=== PATIENT | male | born 1995 | race Two or more races ===

== ENCOUNTER 2018-03-06 09:55 | Emergency (ER) | payer OTHER ==
[2018-03-06 10:04] VITALS: BP 129/89
== END 2018-03-06 11:00 | disposition left against medical advice (07) ==
DX: Z53.21 Procedure and treatment not carried out due to patient leaving prior to being seen by health care provider (principal)

== ENCOUNTER 2018-08-28 09:02 | Emergency (ER) | payer OTHER ==
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
[2018-08-28 09:37] LABS: PLATELET COUNT 205 10^3/uL (150-400)
[2018-08-28 14:13] VITALS: BP 110/62
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
--- NOTE | 2018-08-28 15:15 | ASMTTCLDSP ---
[facility] Discharge Disposition Disposition: Answers: Discharge If Answers: Yes DISCHARGED: Patient/family given suicide hotline info & SAMHSA brochure? Disposition Notes: Notes: Pt stated commitment or ability to keep self safe, denied thoughts of self harm or harm to others. Pt was given local hotline information and SAMHSA brochure After an Attempt. Discharge Concerns/Recommendations: Notes: In consultation with [facility] ED physician, Krysten Luevano MD, Dr. Luevano concurred that pt does not appear to meet 27-65 criteria requiring psychiatric hospitalization as pt does not appear to be an imminent risk of harm to self/others/gravely disabled due to a mental illness condition. Dr. Luevano provided verbal order read back vacating M1 hold at 1335 hrs. Was patient given the Answers: Not applicable Inpatient Behavioral Health Prohibited Belongings List while in the ED? Psychiatrist vacating M1 Krysten Luevano MD Hold: Date and time M1 hold 08/28/2018 01:55 PM vacated (time format is hh:mm): Type of Hold: Answers: M1/72-hour Hold Hold initiated by: Answers: Police Date Signed: 08/28/2018 03:14 PM Electronically Signed By:Gordon Camargo
== END 2018-08-28 14:13 | disposition home or self-care (01) ==
LOC: EDUNIT#
PROC: GZ11ZZZ Psychological Tests, Personality and Behavioral (ICD-10-PCS; principal; 2018-08-28)
DX: T42.4X1A Poisoning by benzodiazepines, accidental (unintentional), initial encounter (principal); F43.9 Reaction to severe stress, unspecified
CPT/HCPCS: 80305; G0480

== ENCOUNTER 2019-04-25 10:21 | Emergency (ER) | payer OTHER | END 2019-04-25 13:35 | disposition home or self-care (01) ==